=== PATIENT | female | born 1980 | race Caucasian/White ===

== ENCOUNTER → 2021-12-10 | Outpatient (CLI) | LOC: M SOG 08:08 | PROVIDERS: ATTEND Orthopaedic Surgery Adult Reconstructive Orthopaedic Surgery | DX: M25.561 Pain in right knee (principal) ==

== ENCOUNTER → 2022-02-20 | Outpatient (CLI) | payer OTHER | LOC: M RAD 12:52 | PROVIDERS: ATTEND Orthopaedic Surgery Adult Reconstructive Orthopaedic Surgery | DX: S83.231A Complex tear of medial meniscus, current injury, right knee, initial encounter (principal); X58.XXXA Exposure to other specified factors, initial encounter; Y92.9 Unspecified place or not applicable ==

== ENCOUNTER → 2022-05-24 | Outpatient (CLI) | payer OTHER | LOC: M LABSMTC 10:04 | PROVIDERS: ATTEND Anesthesiology | DX: Z01.818 Encounter for other preprocedural examination (principal); Z11.52 Encounter for screening for COVID-19 ==

== ENCOUNTER 2022-05-26 08:01 | Day surgery (SDC) | payer OTHER ==
[~2022-05-26] VITALS: Ht 162.6 cm; Wt 107.4 kg
[~2022-05-26 08:01] MED LIST: ACETAMINOPHEN 500 MG TAB PO ONE; CelecoXIB 400 MG CAP PO ONE; GABAPENTIN 300 MG CAP PO ONE; ONDANSETRON 4MG 2ML VIAL IV ONE
[2022-05-26] MEDS ORDERED: LR 1,000 ML IV SCH ×2 (08:15→10:25)
[2022-05-26] MEDS ORDERED: METOCLOPRAMIDE INJ 10MG/2ML VIAL As Ordered ONE (09:17)
[2022-05-26] MEDS ORDERED: fentaNYL 100 MCG/2 ML INJECTION As Ordered ONE (09:17)
[2022-05-26] MEDS ORDERED: MIDAZOLAM INJ 2MG/2ML VIAL (J2250 PER 1MG) As Ordered ONE (09:17)
[2022-05-26] MEDS ORDERED: KETOROLAC 60MG 2ML VIAL As Ordered ONE (09:17)
[2022-05-26] MEDS ORDERED: propofoL 200 MG/20 ML VIAL As Ordered ONE (09:17)
[2022-05-26] MEDS ORDERED: ONDANSETRON 4MG 2ML VIAL As Ordered ONE (09:17)
[2022-05-26] MEDS ORDERED: LIDOCAINE 2% 100MG/5ML SDV (FOR ANES.) As Ordered ONE (09:17)
[2022-05-26] MEDS ORDERED: BUPIVACAINE/EPIN 0.5% 30ML VIAL As Ordered ONE (09:21)
[2022-05-26] MEDS ORDERED: oxyCODONE 5MG TAB PO PRN (10:25)
[2022-05-26] MEDS ORDERED: MORPHINE 2 MG/ML 1ML VIAL IV PRN (10:25)
[2022-05-26] MEDS ORDERED: ONDANSETRON 4MG 2ML VIAL IV PRN (10:25)
[2022-05-26] MEDS ORDERED: METOCLOPRAMIDE INJ 10MG/2ML VIAL IV PRN (10:25)
[2022-05-26] MEDS ORDERED: fentaNYL 100 MCG/2 ML INJECTION IV PRN (10:25)
[2022-05-26] MEDS ORDERED: EPINEPHrine 1MG/ML INJ 30ML MD-VIAL As Ordered ONE (10:44)
[2022-05-26 14:10] VITALS: BP 117/64
== END 2022-05-26 15:40 | disposition home or self-care (01) ==
LOC: M SDC 08:01
PROVIDERS: ATTEND Orthopaedic Surgery Adult Reconstructive Orthopaedic Surgery
DX: S83.241A Other tear of medial meniscus, current injury, right knee, initial encounter (principal); S83.281A Other tear of lateral meniscus, current injury, right knee, initial encounter; S83.511A Sprain of anterior cruciate ligament of right knee, initial encounter; M67.51 Plica syndrome, right knee; M13.861 Other specified arthritis, right knee; M23.031 Cystic meniscus, other medial meniscus, right knee; Z88.0 Allergy status to penicillin
CPT/HCPCS: 29880; J0171; J1100; J1885; J2250; J2405; J2765; J3010

== ENCOUNTER → 2022-07-07 | Outpatient (RCR) | payer OTHER | LOC: M PT 06-16 09:26 | PROVIDERS: ATTEND Orthopaedic Surgery Adult Reconstructive Orthopaedic Surgery | DX: M22.2X1 Patellofemoral disorders, right knee (principal) ==

== ENCOUNTER 2022-07-28 08:28 | Outpatient (RCR) | payer OTHER | END 2022-08-04 | LOC: M PT 08:28 | PROVIDERS: ATTEND Orthopaedic Surgery Adult Reconstructive Orthopaedic Surgery | DX: M22.2X1 Patellofemoral disorders, right knee (principal) ==